=== PATIENT | female | born 1980 | race Caucasian/White ===

== ENCOUNTER 2016-10-27 13:30 | Emergency (ER) | payer BC, OTHER ==
[2016-10-27 13:45] VITALS: BP 116/73
--- NOTE | 2016-10-27 14:09 | EDM.PDOC ---
ED HPI GENERAL MEDICAL PROBLEM - General Chief Complaint: Skin Complaint Stated Complaint: HIVES Time Seen by Provider: 10/27/16 13:39 Source of Information: Reports: Patient History Limitations: Reports: No Limitations - History of Present Illness INITIAL COMMENTS - FREE TEXT/NARRATIVE: Presents reporting a one and one-half week history of a syndrome of rash on the hands, fatigue, low-grade fever and "fuzzy" in the head. 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 She had a low-grade fever of 100.6 and therefore was asked by her it consulting manager to be evaluated in the emergency room. There, she was found to have tea-colored urine, mild hematuria, electrolyte imbalances, and elevated liver enzymes. A CBC was normal. She was told to follow-up with her primary care provider and drink plenty of fluids. She states that she has been drinking fluids. A couple of days ago she drove out here to [place] to bring her stepdaughter back home. She became increasingly concerned about her persistent and mildly worsening symptoms and thus presents today. both hand Pain Score (Numeric/FACES): 3 - Related Data Allergies Allergy/AdvReac Type Severity Reaction Status Date / Time amoxicillin Allergy Hives Verified 10/27/16 13:54 cephalexin [From Keflex] Allergy Vomiting Verified 10/27/16 13:54 clindamycin Allergy Vomiting Verified 10/27/16 13:54 Penicillins Allergy Hives Verified 10/27/16 13:54 Sulfa (Sulfonamide Allergy Hives Verified 10/27/16 13:54 Antibiotics) Home Meds: Home Meds Doxycycline [Vibramycin] 1 cap PO Q12HR #20 cap 10/27/16 [Rx] Metoprolol Tartrate 25 mg PO BID 10/27/16 [History] Past Medical History - Past Health History Medical/Surgical History: Denies Medical/Surgical History Cardiovascular History: Reports: Other (See Below) Other Cardiovascular History: SVT 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: - Past Surgical History HEENT Surgical History: Reports: Other (See Below) Other HEENT Surgeries/Procedures: dental sx GI Surgical History: Reports: Appendectomy Social & Family History - Family History Family Medical History: Noncontributory - Tobacco Use Smoking Status *Q: Never Smoker - Recreational Drug Use Recreational Drug Use: No ED ROS GENERAL - Review of Systems Review Of Systems: See Below Constitutional: Reports: Fever (low grade) HEENT: Reports: Throat Pain (off and on) Respiratory: Reports: No Symptoms Cardiovascular: Reports: Other (Hx of STV--episodic) Endocrine: Reports: No Symptoms GI/Abdominal: Reports: No Symptoms. Denies: Diarrhea, Nausea, Vomiting : Reports: No Symptoms Musculoskeletal: Reports: No Symptoms Skin: Reports: No Symptoms Neurological: Reports: Dizziness ("fuzzy" in the head) Psychiatric: Reports: No Symptoms Hematologic/Lymphatic: Reports: No Symptoms Immunologic: Reports: No Symptoms ED EXAM, SKIN/RASH Exam: See Below Exam Limited By: No Limitations General Appearance: Alert, No Apparent Distress Ears: Normal External Exam, Normal TMs Nose: Normal Inspection Throat/Mouth: Normal Inspection, Normal Oropharynx, Normal Voice (mildly hoarse) Head: Atraumatic, Normocephalic Neck: Normal Inspection, Lymphadenopathy (L), Lymphadenopathy (R) (small but tender anterior cervical) Respiratory/Chest: No Respiratory Distress, Normal Breath Sounds, No Accessory Muscle Use Cardiovascular: Normal Peripheral Pulses GI/Abdominal: Soft Back Exam: Normal Inspection Neurological: Alert, Oriented, CN II-XII Intact, Normal Cognition, Normal Gait, No Motor/Sensory Deficits Psychiatric: Normal Affect, Normal Mood Skin: Warm, Dry, Intact, Normal Color, Other (Faint pink, maculopapular, widely distributed rash on the palms only. Almost blister-like but non-vasicular.) Course - Vital Signs Last Recorded V/S: Last Vital Signs Temp 36.9 C 10/27/16 13:40 Pulse 89 10/27/16 13:40 Resp 18 10/27/16 13:40 BP 116/73 10/27/16 13:40 Pulse Ox 97 10/27/16 13:40 - Orders/Labs/Meds Orders: Active Orders 24 hr Category Date Time Status MISC TEST Stat Lab 10/27/16 14:55 Ordered Labs: Laboratory Tests 10/27/16 10/27/16 10/27/16 Range/Units 13:58 13:58 13:58 WBC 7.32 (4.0-11.0) K/uL RBC 4.48 (4.30-5.90) M/uL Hgb 12.2 (12.0-16.0) g/dL Hct 37.4 (36.0-46.0) % MCV 83.5 (80.0-98.0) fL MCH 27.2 (27.0-32.0) pg MCHC 32.6 (31.0-37.0) g/dL RDW Std Deviation 42.7 (28.0-62.0) fl RDW Coeff of Wu 14 (11.0-15.0) % Plt Count 185 (150-400) K/uL MPV 9.50 (7.40-12.00) fL Add Manual Diff YES Neutrophils % (Manual) 20 L (48.0-80.0) % Band Neutrophils % 10 % Lymphocytes % (Manual) 58 H (16.0-40.0) % Monocytes % (Manual) 8 (0.0-15.0) % Eosinophils % (Manual) 2 (0.0-7.0) % Basophils % (Manual) 2 H (0.0-1.5) % Nucleated RBC % 0.0 /100WBC Absolute Seg Neuts 1.5 Band Neutrophils # 0.7 Lymphocytes # (Manual) 4.2 Monocytes # (Manual) 0.6 Eosinophils # (Manual) 0.1 Basophils # (Manual) 0 Nucleated RBCs # 0 K/uL Sodium 137 (136-146) mmol/L Potassium 4.3 (3.5-5.1) mmol/L Chloride 106 (98-110) mmol/L Carbon Dioxide 25 (21-31) mmol/L BUN 9 (6.0-23.0) mg/dL Creatinine 0.8 (0.6-1.5) mg/dL Est Cr Clr Drug Dosing TNP Estimated GFR (MDRD) > 60.0 ml/min Glucose 133 H (60-110) mg/dL Calcium 8.9 (8.8-10.8) mg/dL Total Bilirubin 0.4 (0.1-1.5) mg/dL AST 69 H (5-40) IU/L ALT 87 H (8-54) IU/L Alkaline Phosphatase 106 (40-150) Total Protein 7.5 (6.0-8.0) g/dL Albumin 3.9 (3.5-5.0) g/dL Globulin 3.6 H (2.0-3.5) g/dL Albumin/Globulin Ratio 1.1 L (1.3-2.8) Urine Color Urine Appearance Urine pH (5.0-8.0) Ur Specific [place] (1.001-1.035) Urine Protein (NEGATIVE) mg/dL Urine Glucose (UA) (NEGATIVE) mg/dL Urine Ketones (NEGATIVE) mg/dL Urine Occult Blood (NEGATIVE) Urine Nitrite (NEGATIVE) Urine Bilirubin (NEGATIVE) Urine Urobilinogen (<2.0) EU/dL Ur Leukocyte Esterase (NEGATIVE) Urine RBC (0-2/HPF) Urine WBC (0-5/HPF) Ur Epithelial Cells (NONE-FEW) Amorphous Sediment (NEGATIVE) Urine Bacteria (NEGATIVE) Monoscreen NEGATIVE (NEG) 10/27/16 Range/Units 14:35 WBC (4.0-11.0) K/uL RBC (4.30-5.90) M/uL Hgb (12.0-16.0) g/dL Hct (36.0-46.0) % MCV (80.0-98.0) fL MCH (27.0-32.0) pg MCHC (31.0-37.0) g/dL RDW Std Deviation (28.0-62.0) fl RDW Coeff of Wu (11.0-15.0) % Plt Count (150-400) K/uL MPV (7.40-12.00) fL Add Manual Diff Neutrophils % (Manual) (48.0-80.0) % Band Neutrophils % % Lymphocytes % (Manual) (16.0-40.0) % Monocytes % (Manual) (0.0-15.0) % Eosinophils % (Manual) (0.0-7.0) % Basophils % (Manual) (0.0-1.5) % Nucleated RBC % /100WBC Absolute Seg Neuts Band Neutrophils # Lymphocytes # (Manual) Monocytes # (Manual) Eosinophils # (Manual) Basophils # (Manual) Nucleated RBCs # K/uL Sodium (136-146) mmol/L Potassium (3.5-5.1) mmol/L Chloride (98-110) mmol/L Carbon Dioxide (21-31) mmol/L BUN (6.0-23.0) mg/dL Creatinine (0.6-1.5) mg/dL Est Cr Clr Drug Dosing Estimated GFR (MDRD) ml/min Glucose (60-110) mg/dL Calcium (8.8-10.8) mg/dL Total Bilirubin (0.1-1.5) mg/dL AST (5-40) IU/L ALT (8-54) IU/L Alkaline Phosphatase (40-150) Total Protein (6.0-8.0) g/dL Albumin (3.5-5.0) g/dL Globulin (2.0-3.5) g/dL Albumin/Globulin Ratio (1.3-2.8) Urine Color YELLOW Urine Appearance CLEAR Urine pH 6.0 (5.0-8.0) Ur Specific [place] 1.020 (1.001-1.035) Urine Protein NEGATIVE (NEGATIVE) mg/dL Urine Glucose (UA) NEGATIVE (NEGATIVE) mg/dL Urine Ketones NEGATIVE (NEGATIVE) mg/dL Urine Occult Blood TRACE-LYSED (NEGATIVE) Urine Nitrite NEGATIVE (NEGATIVE) Urine Bilirubin NEGATIVE (NEGATIVE) Urine Urobilinogen 0.2 (<2.0) EU/dL Ur Leukocyte Esterase NEGATIVE (NEGATIVE) Urine RBC NONE SEEN (0-2/HPF) Urine WBC 0-1 (0-5/HPF) Ur Epithelial Cells FEW (NONE-FEW) Amorphous Sediment FEW (NEGATIVE) Urine Bacteria FEW (NEGATIVE) Monoscreen (NEG) - Re-Assessments/Exams Free Text/Narrative Re-Assessment/Exam: 10/27/16 14:58 Further discussion with the patient that [place] in [facility] and has found numerous different ticKs on both herself and her dog which sleeps with them at night. She cannot recall a specific bite but has pulled a number of ticks off of herself and her pets in the recent weeks and months. We will send off a test for a [place] spotted fever titer and treat her with doxycycline since she has at least some of the syndrome of symptoms consistent with tickborne disease including rash, low-grade fever, fatigue, elevated liver enzymes. Departure - Departure Time of Disposition: 15:09 Disposition: Home, Self-Care 01 Condition: Good Clinical Impression: Maculopapular rash, localized - Discharge Information Referrals: PCP,None [Primary Care Provider] - Forms: ED Department Discharge Additional Instructions: 1. Follow up with your [facility] provider Jael Funez MD as soon as you return to your home in [facility]. 2. Take your doxycycline with food every 12 hours for the next 10 days. Avoid sunlight 3. Your lab results will be faxed to Dr. Jael Funez at [facility] when available 4. Report here or in the ER promptly for high fevers vomiting confusion or other neurologic symptoms. - My Orders Last 24 Hours: My Active Orders 10/27/16 14:55 MISC TEST Stat - Assessment/Plan Last 24 Hours: My Active Orders 10/27/16 14:55 MISC TEST Stat
[2016-10-27 14:33] LABS: CHLORIDE,CL 106 mmol/L (98-110); SODIUM,NA 137 mmol/L (136-146)
== END 2016-10-27 15:31 | disposition home or self-care (01) ==
LOC: MW.ED 13:30
DX: R21 Rash and other nonspecific skin eruption (principal); Z88.1 Allergy status to other antibiotic agents; Z88.0 Allergy status to penicillin; Z88.2 Allergy status to sulfonamides; Z90.49 Acquired absence of other specified parts of digestive tract
CPT/HCPCS: 36415; 80053; 81001; 85025; 86308; 86757; 99282